=== PATIENT | male | born 1965 | race Caucasian/White ===

== ENCOUNTER 2016-06-21 01:40 | Day surgery (SDC) | payer BC ==
[~2016-06-21 01:40] MED LIST: BACTRIM DS TAB1 EAC2 PO; BENAZEPRIL HCL10 M2 PO; CLOBETASOL EMOL15 GM TP; CULTURELLE1 EAC1 PO; FIBER GUMMIES1 EACH PO; MELOXICAM15 M1 PO; OMEPRAZOLE20 M3 PO; PAIN & FEVER325 M1 PO; RED YEAST RICE600 M2 PO; SINGULAIR10 M1 PO; SYNTHROID100 MC1 PO; VITAMIN D2000 UNI1 PO
[2016-06-21 02:30] LABS: BASO % 0.3 % (0-2); EOS % 2.2 % (0-7); EOSINOPHIL ABSOLUTE COUNT 0.2 tho/cmm (0.0-0.7); HCT-HEMATOCRIT 40.8 % (36.0-53.5); HGB-HEMOGLOBIN 13.7 gm/dl (13.5-17.0); IMMATURE GRANULOCYTES ABSOLUTE 0.01 tho/cmm (0-0.03); IMMATURE GRANULOCYTES PERCENT 0.1 % (0-0.3); LYMPH % 23.5 % (20-45); LYMPH ABSOLUTE COUNT 1.6 tho/cmm (0.8-4.5); MCH (MEAN CORPUSCULAR HGB) 29.7 pg (28.0-32.0); MCHC MEAN CORPUSCULAR HGB CONC 33.6 % (32.0-36.0); MCV (MEAN CELL VOLUME) 88.3 fl (82.0-96.0); MEAN PLATELET VOLUME 11.1 cmc (9.4-12.4); MONO % 6.8 % (0-12); MONOCYTE ABSOLUTE COUNT 0.5 tho/cmm (0.0-1.2); NEUTROPHIL ABSOLUTE COUNT 4.5 tho/cmm (1.6-8.0); NEUTROPHIL-AUTOMATED 4.5 tho/cmm (1.6-8.0); NEUTROPHILS % 67.1 % (40-80); PLATELET COUNT 209 tho/cmm (150-450); RED BLOOD COUNT 4.62 mil/cmm (4.40-5.70); RED CELL DISTRIBUTION WIDTH 13.6 % (12.4-16.4); WHITE BLOOD COUNT 6.8 tho/cmm (4.0-10.0)
[2016-06-21 02:47] LABS: ALB/GLOB RATIO 0.9 (0.8-2.0); ALBUMIN 3.6 g/dl (3.5-5.0); ALKALINE PHOSPHATASE 76 U/L (33-138); ALT/SGPT 35 U/L (12-78); BILIRUBIN,TOTAL 0.4 mg/dl (0.0-1.5); BLOOD UREA NITROGEN 15 mg/dl (6-24); CALCIUM 8.4 mg/dl (8.5-10.5); CARBON DIOXIDE-VENOUS 27 mmol/L (22-32); CHLORIDE 107 mmol/l (96-110); CREATININE 1.09 mg/dl (0.60-1.30); GLUCOSE 138 mg/dL (70-110); SODIUM 142 mmol/L (135-145); eGFR VALUE FOR BLACK >90 mL/Min
[2016-06-21 02:52] LABS: ANION GAP 12 mmol/L (0-20); AST/SGOT 23 U/L (10-40); POTASSIUM 3.8 mmol/L (3.7-5.1)
[2016-06-21 12:49] LABS: AMYLASE 47 U/L (20-90); LIPASE 98 U/L (73-393)
[2016-06-21] MEDS ORDERED: ASPIRIN81 M1 PO (12:58)
[2016-06-21] MEDS ORDERED: LIPITOR10 M1 PO (12:58)
[2016-06-21] MEDS ORDERED: NORVASC2.5 M1 PO (12:58)
[2016-06-22] MEDS ORDERED: NORCO 5-325 TA1 EACH PO (11:55)
[2016-06-22] MEDS ORDERED: COLACE100 M1 PO (12:19)
== END 2016-06-22 13:05 ==
LOC: EDMED 01:40 → EMR2 03:38 → CAR1 03:57 → ORW 17:26 → PACU 19:16 → CAR1 20:02
PROVIDERS: Emergency Medicine Emergency Medical Services; Internal Medicine Cardiovascular Disease; Physician Assistant Medical
PROC: 0FT44ZZ Resection of Gallbladder, Percutaneous Endoscopic Approach (ICD-10-PCS; principal; 2016-06-21)
PROC: 0WQF0ZZ Repair Abdominal Wall, Open Approach (ICD-10-PCS; 2016-06-21)
DX: K80.10 Calculus of gallbladder with chronic cholecystitis without obstruction (principal); K42.0 Umbilical hernia with obstruction, without gangrene; I10 Essential (primary) hypertension; E03.9 Hypothyroidism, unspecified; K21.9 Gastro-esophageal reflux disease without esophagitis; Z98.890 Other specified postprocedural states
CPT/HCPCS: A9500; G0378; G8978-GP-CK; G8979-GP-CK; G8980-GP-CK; J0690; J2270; J2405; J2785; J7030